=== PATIENT | female | born 1970 | race American Indian/Alaskan Native ===

== ENCOUNTER 2016-12-30 08:41 | Emergency (ER) | payer MEDICAID ==
--- NOTE | 2016-12-30 09:48 | XRay Report ---
ROUTINE CHEST, TWO VIEWS: HISTORY: Shortness of breath. The trachea, heart, mediastinal contour, lung purvis and bony thorax are unremarkable. IMPRESSION: No acute cardiopulmonary process appreciated.
--- NOTE | 2016-12-30 12:39 | Emergency Department Report ---
- General Chief Complaint: Upper Respiratory Infection Stated Complaint: CHEST PAIN/SPITTING BLOOD Time Seen by Provider: 12/30/16 12:34 Source: patient Mode of arrival: Ambulatory Limitations: No Limitations - History of Present Illness Initial Comments: Patient is a 46 y/o female who presents due to cough and sorethroat x 4 days. Patient states that she has had productive cough with green sputum. Patient states that she cough really bad and there was streaks of blood. Patient denies any fever, chills, nasal congestion. Patient denies any sick contacts. Patient states that she has chest pain with coughing. Patient denies any SOB. MD Complaint: cough, sore throat Onset/Timin -: days(s) Severity: moderate Quality: aching Consistency: intermittent (with coughing) Improves With: nothing Worsens With: other (coughing) Associated Symptoms: sore throat Treatments Prior to Arrival: "cold medicine" - Related Data Previous Rx's Medication Instructions Recorded Last Taken Type Mebendazole (Nf) [Vermox Chew (Nf)] 100 mg PO BID #12 tablet 05/13/13 04/20/14 Rx Colchicine [Colcrys] 0.6 mg PO BID #20 tab 04/27/14 Unknown Rx HYDROcodone/APAP 7.5-325 [[place] 1 each PO Q6HR PRN #20 tablet 04/27/14 Unknown Rx 7.5/325 mg] predniSONE [Deltasone] 50 mg PO QDAY #5 tab 04/27/14 Unknown Rx Azithromycin [Zithromax Z-JAMES] 250 mg PO DAILY #6 tablet 12/30/16 Unknown Rx Guaifenesin/Codeine Phosphate 5 ml PO Q6HR PRN #120 liquid 12/30/16 Unknown Rx [Guaifenesin-Codeine Liquid] Ibuprofen [Motrin 800 MG tab] 800 mg PO Q8HR PRN #30 tablet 12/30/16 Unknown Rx Allergies Allergy/AdvReac Type Severity Reaction Status Date / Time No Known Allergies Allergy Verified 12/30/16 08:59 ED Review of Systems ROS: Stated complaint: CHEST PAIN/SPITTING BLOOD Other details as noted in HPI Comment: All other systems reviewed and negative Constitutional: no symptoms reported. denies: chills, diaphoresis, fever, malaise, weakness ENT: throat pain. denies: ear pain, dental pain, hearing loss, epistaxis, congestion Respiratory: cough. denies: orthopnea, shortness of breath, SOB with exertion, SOB at rest, stridor, wheezing Cardiovascular: chest pain (when couging). denies: palpitations, dyspnea on exertion, orthopnea, edema, syncope Endocrine: no symptoms reported Gastrointestinal: denies: abdominal pain, nausea, vomiting, diarrhea Genitourinary: denies: urgency, dysuria, frequency, hematuria, discharge Musculoskeletal: denies: back pain Skin: denies: rash ED Past Medical Hx - Past Medical History Previous Medical History?: No - Surgical History Additional Surgical History: TUBAL LIGATION - Social History Smoking Status: Never Smoker Substance Use Type: Alcohol - Medications Home Medications: Home Medications Medication Instructions Recorded Confirmed Last Taken Type Mebendazole (Nf) [Vermox Chew (Nf)] 100 mg PO BID #12 tablet 05/13/13 04/27/14 04/20/14 Rx Colchicine [Colcrys] 0.6 mg PO BID #20 tab 04/27/14 Unknown Rx HYDROcodone/APAP 7.5-325 [[place] 1 each PO Q6HR PRN #20 tablet 04/27/14 Unknown Rx 7.5/325 mg] predniSONE [Deltasone] 50 mg PO QDAY #5 tab 04/27/14 Unknown Rx Azithromycin [Zithromax Z-JAMES] 250 mg PO DAILY #6 tablet 12/30/16 Unknown Rx Guaifenesin/Codeine Phosphate 5 ml PO Q6HR PRN #120 liquid 12/30/16 Unknown Rx [Guaifenesin-Codeine Liquid] Ibuprofen [Motrin 800 MG tab] 800 mg PO Q8HR PRN #30 tablet 12/30/16 Unknown Rx ED Physical Exam - General Limitations: No Limitations General appearance: alert, in no apparent distress - Head Head exam: Present: atraumatic, normocephalic, normal inspection - Eye Eye exam: Present: normal appearance, PERRL, EOMI - ENT ENT exam: Present: normal exam, normal orophraynx, mucous membranes moist. Absent: mucous membranes dry - Neck Neck exam: Present: normal inspection, full ROM. Absent: tenderness, meningismus - Respiratory Respiratory exam: Present: normal lung sounds bilaterally. Absent: respiratory distress, wheezes, rales, rhonchi, stridor, chest wall tenderness, accessory muscle use, decreased breath sounds, prolonged expiratory - Cardiovascular Cardiovascular Exam: Present: regular rate, normal rhythm, normal heart sounds - GI/Abdominal GI/Abdominal exam: Present: soft, normal bowel sounds. Absent: distended, tenderness, guarding, rebound, rigid - Extremities Exam Extremities exam: Present: normal inspection, full ROM, normal capillary refill. Absent: tenderness, pedal edema, joint swelling, calf tenderness - Back Exam Back exam: Present: normal inspection, full ROM. Absent: tenderness - Neurological Exam Neurological exam: Present: alert, oriented X3, normal gait - Psychiatric Psychiatric exam: Present: normal affect, normal mood - Skin Skin exam: Present: warm, dry, intact ED Course Vital Signs 12/30/16 12/30/16 08:53 13:09 Temperature 98.6 F 98.2 F Pulse Rate 103 H 72 Respiratory 18 18 Rate Blood Pressure 131/87 Blood Pressure 125/86 [Left] O2 Sat by Pulse 98 Oximetry ED Medical Decision Making - Radiology Data Radiology results: report reviewed chest x-ray shows no consolidation or infiltrates. - Medical Decision Making Patient was in no acute distress, patient had bilateral lung sounds with good air exchange, patient had no tonsillar erythema no tonsillar exudates no tonsillar edema. She had no active chest pain in the ER. EKG showed normal sinus rhythm, possible left atrial enlargement, nonspecific T- wave abnormality. Patient was discharged with a prescription for azithromycin, with numbness codeine, and ibuprofen. Patient was told to follow-up with her primary care provider for an ectopic patient's. pt's vitals were normal prior to discharge. - Differential Diagnosis bronchitis, tonsillitis, URI Critical care attestation.: If time is entered above; I have spent that time in minutes in the direct care of this critically ill patient, excluding procedure time. ED Disposition Clinical Impression: Bronchitis Disposition: DC-01 TO HOME OR SELFCARE Is pt being admited?: No Does the pt Need Aspirin: No Condition: Good Instructions: Acute Bronchitis (ED) Additional Instructions: Take azithromycin as prescribed, take with numbness and with codeine 5 mL every 6 hours as needed for cough. Take ibuprofen 800 mg every 8 hours as needed for pain. Follow-up with your primary care provider or at [facility] Prescriptions: Azithromycin [Zithromax Z-JAMES] 250 mg PO DAILY #6 tablet Guaifenesin/Codeine Phosphate [Guaifenesin-Codeine Liquid] 5 ml PO Q6HR PRN # 120 liquid PRN Reason: Cough Ibuprofen [Motrin 800 MG tab] 800 mg PO Q8HR PRN #30 tablet PRN Reason: Pain Referrals: PRIMARY CARE,MD [Primary Care Provider] - 3-5 Days Forms: Work/School Release Form(ED) Time of Disposition: 12:46
[2016-12-30 13:12] VITALS: BP 125/86
== END 2016-12-30 13:09 | disposition home or self-care (01) ==
LOC: ED 08:41
DX: J40 Bronchitis, not specified as acute or chronic (principal)
CPT/HCPCS: 71020; 93005; 93010